=== PATIENT | female | born 1985 | race Caucasian/White ===

== ENCOUNTER 2018-09-14 05:25 | Inpatient (IN) | payer OTHER ==
[~2018-09-14 05:25] MED LIST: Citric Acid/Sodium Citrate Solution 30 ML Cup PO ONE; Lactated Ringers 1,000 ML IV SCH; Metoclopramide 10 MG/2 ML SDV IVPUSH ONE; Oxytocin/Lactated Ringers 10 UNIT/1,000 ML BAG IV SCH; Sodium Chloride 0.9% 10 ML Syringe FLUSH PRN
[2018-09-14] MEDS ORDERED: Citric Acid/Sodium Citrate Solution 30 ML Cup ONE (07:00)
[2018-09-14] MEDS ORDERED: Metoclopramide 10 MG/2 ML SDV ONE (07:00)
[2018-09-14] MEDS ORDERED: ceFAZolin 2 GM in Premix Bag 1 BAG IV ONE (07:00)
[2018-09-14] MEDS ORDERED: Morphine PF 1 MG/ML Amp ONE (07:13)
[2018-09-14] MEDS ORDERED: Ketorolac 30 MG/ML SDV ONE (07:13)
[2018-09-14] MEDS ORDERED: ceFAZolin 1 GM Vial ONE (07:13)
[2018-09-14] MEDS ORDERED: Ondansetron 4 MG/2 ML SDV ONE (07:13)
[2018-09-14] MEDS ORDERED: Oxytocin 10 Units/1 ML SDV ONE (07:13)
[2018-09-14] MEDS ORDERED: Lactated Ringers 2,000 ML ONE (07:13)
--- NOTE | 2018-09-14 07:28 | PCM.PREANE ---
Preanesthetic Assessment - Procedure Proposed Procedure: c section - Anesthesia/Transfusion/Family Hx Anesthesia History: Prior Anesthesia Without Reaction Family History of Anesthesia Reaction: No Transfusion History: No Prior Transfusion(s) - Review of Systems General: No Symptoms Pulmonary: No Symptoms Cardiovascular: No Symptoms Gastrointestinal: No Symptoms Neurological: No Symptoms Other: Reports: None - Physical Assessment NPO Status Date: 09/13/18 NPO Status Time: 18:30 Pulse: 84 O2 Sat by Pulse Oximetry: 100 Respiratory Rate: 16 Blood Pressure: 110/75 Vital Signs: Last Vital Signs Temp 97.9 F 09/14/18 06:06 Pulse 84 09/14/18 05:40 Resp 16 09/14/18 06:06 BP 110/75 09/14/18 05:40 Pulse Ox 100 09/14/18 05:40 Height: 5 ft 3 in Weight: 73.028 kg ASA Class: 2 Mental Status: Alert & Oriented x3 Airway Class: Mallampati = 1 Dentition: Reports: Normal Dentition Thyro-Mental Finger Breadths: 3 Mouth Opening Finger Breadths: 3 ROM/Head Extension: Full Lungs: Clear to Auscultation, Normal Respiratory Effort Cardiovascular: Regular Rate, Regular Rhythm - Lab Values: Laboratory Last Values WBC 5.58 K/mm3 (3.98-10.04) 09/12/18 08:51 RBC 3.88 M/mm3 (3.98-5.22) L 09/12/18 08:51 Hgb 10.7 gm/L (11.2-15.7) L D 09/12/18 08:51 Hct 33.7 % (34.1-44.9) L 09/12/18 08:51 MCV 86.9 fl (79.4-94.8) 09/12/18 08:51 MCH 27.6 pg (25.6-32.2) 09/12/18 08:51 MCHC 31.8 g/dl (32.2-35.5) L 09/12/18 08:51 RDW Std Deviation 43.1 fL (36.4-46.3) 09/12/18 08:51 Plt Count 259 K/mm3 (182-369) 09/12/18 08:51 MPV 9.8 fl (9.4-12.3) 09/12/18 08:51 Neut % (Auto) 65.3 % (34.0-71.1) 09/12/18 08:51 Lymph % (Auto) 27.4 % (19.3-51.7) 09/12/18 08:51 Gordon % (Auto) 5.9 % (4.7-12.5) 09/12/18 08:51 Eos % (Auto) 0.4 (0.7-5.8) L 09/12/18 08:51 Baso % (Auto) 0.5 % (0.1-1.2) 09/12/18 08:51 Neut # (Auto) 3.64 K/mm3 (1.56-6.13) 09/12/18 08:51 Lymph # (Auto) 1.53 K/mm3 (1.18-3.74) 09/12/18 08:51 Gordon # (Auto) 0.33 K/mm3 (0.24-0.36) 09/12/18 08:51 Eos # (Auto) 0.02 K/mm3 (0.04-0.36) L 09/12/18 08:51 Baso # (Auto) 0.03 K/mm3 (0.01-0.08) 09/12/18 08:51 Blood Type O POSITIVE 09/12/18 08:51 Gel Antibody Screen Negative 09/12/18 08:51 - Allergies Allergies/Adverse Reactions: Allergies Allergy/AdvReac Type Severity Reaction Status Date / Time amoxicillin Allergy Rash Verified 10/13/15 07:09 - Blood Blood Available: No - Acknowledgements Anesthesia Type Planned: Spinal Pt an Appropriate Candidate for the Planned Anesthesia: Yes Alternatives and Risks of Anesthesia Discussed w Pt/Guardian: Yes Pt/Guardian Understands and Agrees with Anesthesia Plan: Yes PreAnesthesia Questionnaire Cardiovascular History: Reports: None Respiratory History: Reports: None Gastrointestinal History: Reports: None 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 OB/BYN History: 1 prior - Past Surgical History HEENT Surgical History: Reports: Oral Surgery Female Surgical History: Reports: Section - SUBSTANCE USE Smoking Status *Q: Never Smoker Tobacco Use Within Last Twelve Months: No Second Hand Smoke Exposure: No Days Per Week of Alcohol Use: 0 Recreational Drug Use History: No - HOME MEDS Home Medications: Home Meds Pnv No.122/Iron/Folic Acid [ Multi Tablet] 1 each PO DAILY 10/13/15 [ History] - CURRENT (IN HOUSE) MEDS Current Meds: Current Medications Cefazolin Sodium/Dextrose 2 gm (/ Premix) 50 mls @ 100 mls/hr IV ONETIME ONE Stop: 09/14/18 07:29 Lactated Ringer's (Ringers, Lactated) 1,000 mls @ 125 mls/hr IV ASDIRECTED IDANIA Last Admin: 09/14/18 07:05 Dose: 125 mls/hr Oxytocin/Lactated Ringer's (Pitocin In Lr 10 Units/1,000 Ml) 10 unit in 1,000 mls @ 100 mls/hr IV ASDIRECTED IDANIA; Protocol Sodium Chloride (Saline Flush) 10 ml FLUSH ASDIRECTED PRN PRN Reason: Keep Vein Open Discontinued Medications Bupivacaine HCl (Marcaine 0.5%) Confirm Administered Dose 30 ml .ROUTE .STK-MED ONE Stop: 09/14/18 07:13 Cefazolin Sodium (Ancef) Confirm Administered Dose 2 gm .ROUTE .STK-MED ONE Stop: 09/14/18 07:14 Citric Acid/Sodium Citrate (Bicitra Solution) 30 ml PO ONETIME ONE Stop: 09/14/18 02:51 Last Admin: 09/14/18 07:03 Dose: 30 ml Citric Acid/Sodium Citrate (Bicitra Solution) Confirm Administered Dose 30 ml .ROUTE .STK-MED ONE Stop: 09/14/18 07:01 Lactated Ringer's (Ringers, Lactated) Confirm Administered Dose 2,000 mls @ as directed .ROUTE .STK-MED ONE Stop: 09/14/18 07:14 Ketorolac Tromethamine (Toradol) Confirm Administered Dose 30 mg .ROUTE .STK- MED ONE Stop: 09/14/18 07:14 Metoclopramide HCl (Reglan) 10 mg IVPUSH ONETIME ONE Stop: 09/14/18 02:51 Last Admin: 09/14/18 07:04 Dose: 10 mg Metoclopramide HCl (Reglan) Confirm Administered Dose 10 mg .ROUTE .STK-MED ONE Stop: 09/14/18 07:01 Morphine Sulfate (Duramorph Pf) Confirm Administered Dose 1 mg .ROUTE .STK-MED ONE Stop: 09/14/18 07:14 Ondansetron HCl (Zofran) Confirm Administered Dose 4 mg .ROUTE .STK-MED ONE Stop: 09/14/18 07:14 Oxytocin (Pitocin) Confirm Administered Dose 10 unit .ROUTE .STK-MED ONE Stop: 09/14/18 07:14
[2018-09-14] MEDS ORDERED: ePHEDrine/Normal Saline 25 MG/5 ML Syringe ONE ×2 (07:57→08:09)
[2018-09-14] MEDS: Bupivacaine 0.5% 30 ML SDV ONE ×2 (08:09→08:40)
[2018-09-14] MEDS ORDERED: Ondansetron 4 MG/2 ML SDV IVPUSH PRN ×2 (08:10→12:22)
[2018-09-14] MEDS ORDERED: fentaNYL 100 MCG/2 ML SDV IVPUSH PRN (08:10)
[2018-09-14] MEDS ORDERED: diphenhydrAMINE 50 MG/ML SDV IVPUSH PRN ×2 (08:10→10:49)
--- NOTE | 2018-09-14 08:55 | PCM.POSTAN ---
POST ANESTHESIA ASSESSMENT - MENTAL STATUS Mental Status: Alert, Oriented - VITAL SIGNS Pulse Rate: 61 SaO2: 100 Resp Rate: 26 Blood Pressure: 99/45 Temperature: 97.2 F - RESPIRATORY Respiratory Status: Respiratory Rate WNL, Airway Patent, O2 Saturation Stable, Supplemental Oxygen - CARDIOVASCULAR CV Status: Pulse Rate WNL, Blood Pressure Stable - GASTROINTESTINAL GI Status: No Symptoms - PAIN Pain Score: 0 - POST OP HYDRATION Hydration Status: Adequate & Stable
--- NOTE | 2018-09-14 09:23 | PCM.OPNOTE ---
- General Post-Op/Procedure Note Date of Surgery/Procedure: 09/14/18 Operative Procedure(s): repeat Findings: Viable male, weight 7#11oz, 8/9 apgars at 0814 Pre Op Diagnosis: prior , skin tag mons Post-Op Diagnosis: Same Anesthesia Technique: Spinal Primary Surgeon: Adelita Pitt Cable Cutter And Swager: Arnoldo Rodriguez Fluid Replacement, Intraop: 2,600 Output, Urine Amount: 125 EBL in mLs: 500 Complications: None Condition: Good Free Text/Narrative:: Intake & Output 09/13/18 09/14/18 09/14/18 22:59 06:59 14:59 Output Total 125 Balance -125 The patient was taken to the operating room where epidural anesthesia was dosed to surgical levels without difficulty. The patient was prepped and draped in the usual sterile fashion in the dorsal supine position with a leftward tilt. A Pfannenstiel skin incision was made with the scalpel and carried through to the underlying layer of fascia. The fascia was incised in the midline and extended laterally using Naranjo scissors. Manas clamps were used to elevate the superior aspect of the fascial incision, which was elevated, and the underlying rectus muscles were dissected off bluntly and using Naranjo scissors. Attention was then turned to the inferior aspect of the fascial incision, which in similar fashion was grasped with Manas clamps, elevated, and the underlying rectus muscles were dissected off bluntly and using the naranjo. The rectus muscles were dissected in the midline. The peritoneum was entered bluntly; this incision was extended superiorly and inferiorly with good visualization of the bladder. The bladder blade was inserted. The vesicouterine peritoneum was identified and entered sharply using Metzenbaum scissors. This incision was extended laterally and the bladder flap was created digitally. The bladder blade was reinserted. The lower uterine segment was incised in a transverse fashion using the scalpel and with digital traction. Clear fluid was noted. The was subsequently delivered by flexing the head to the incision. Body and shoulders followed without difficulty. The cord was clamped and cut. The infant was subsequently handed to the awaiting power shear operator whose presence had been requested.. The placenta was delivered spontaneously intact with a three-vessel cord noted. The uterus was exteriorized and cleared of all clots and debris. The uterine incision was repaired in 2 layers using 0 monocryl. Hemostasis was visualized. Hemostasis was visualized bilaterally. The uterus was returned to the abdomen. The uterine incision was reexamined and it was noted to be hemostatic. The pelvis was copiously irrigated. The fascia was closed with 1 PDS suture, and the skin was closed with 3-0 monocryl. Mole on the mons removed in an elliptical fashion. Sutured with 3-0 vicryl. Sponge, lap, and instrument counts were correct x2. The patient was stable at the completion of the procedure and was subsequently transferred to the recovery room in stable condition.
[2018-09-14] MEDS ORDERED: ePHEDrine 50 MG/ML SDV IVPUSH PRN (10:49)
[2018-09-14] MEDS ORDERED: Lanolin 100% Cream 7 GM Tube TOP PRN (10:49)
[2018-09-14] MEDS ORDERED: Dextrose 5%-Lactated Ringers 1,000 ML IV SCH (10:49)
[2018-09-14] MEDS ORDERED: Naloxone 0.4 MG/ML SDV IVPUSH PRN (10:49)
[2018-09-14] MEDS ORDERED: Witch Hazel Medicated Pads 40/Jar TOP PRN (10:49)
[2018-09-15] MEDS: Acetaminophen/HYDROcodone 325-5 MG Tab PO PRN ×3 (00:17→20:34)
[2018-09-15] MEDS: Docusate Sodium 100 MG Cap PO PRN ×2 (08:48→20:35)
--- NOTE | 2018-09-15 10:08 | PCM.PNPP ---
- General Info Date of Service: 09/15/18 Functional Status: Reports: Pain Controlled - Review of Systems General: Reports: No Symptoms HEENT: Reports: No Symptoms Pulmonary: Reports: No Symptoms Cardiovascular: Reports: No Symptoms Gastrointestinal: Reports: No Symptoms Genitourinary: Reports: No Symptoms Musculoskeletal: Reports: No Symptoms Skin: Reports: No Symptoms Neurological: Reports: No Symptoms Psychiatric: Reports: No Symptoms - General Info Date of Service: 09/15/18 - Patient Data Vital Signs - Most Recent: Last Vital Signs Temp 36.6 C 09/15/18 00:09 Pulse 67 09/15/18 04:33 Resp 15 09/15/18 05:00 BP 92/54 L 09/15/18 04:33 Pulse Ox 100 09/15/18 05:00 Weight - Most Recent: 73.028 kg I&O - Last 24 Hours: Intake & Output 09/14/18 09/15/18 09/15/18 22:59 06:59 14:59 Intake Total 1140 1775 Output Total 1430 1600 Balance -290 175 Lab Results - Last 24 Hours: Laboratory Results - last 24 hr 09/12/18 09/15/18 Range/Units 08:57 05:47 WBC 8.59 (3.98-10.04) K/mm3 RBC 3.31 L (3.98-5.22) M/mm3 Hgb 9.1 L D (11.2-15.7) gm/L Hct 29.0 L (34.1-44.9) % MCV 87.6 (79.4-94.8) fl MCH 27.5 (25.6-32.2) pg MCHC 31.4 L (32.2-35.5) g/dl RDW Std Deviation 43.9 (36.4-46.3) fL Plt Count 249 (182-369) K/mm3 MPV 10.4 (9.4-12.3) fl Neut % (Auto) 67.4 (34.0-71.1) % Lymph % (Auto) 24.8 (19.3-51.7) % Orange % (Auto) 7.0 (4.7-12.5) % Eos % (Auto) 0.1 L (0.7-5.8) Baso % (Auto) 0.5 (0.1-1.2) % Neut # (Auto) 5.79 (1.56-6.13) K/mm3 Lymph # (Auto) 2.13 (1.18-3.74) K/mm3 Orange # (Auto) 0.60 H (0.24-0.36) K/mm3 Eos # (Auto) 0.01 L (0.04-0.36) K/mm3 Baso # (Auto) 0.04 (0.01-0.08) K/mm3 RPR Non-reactive (NONREACTIVE) Med Orders - Current: Current Medications Hydrocodone Bitart/Acetaminophen (Sargeant 325-5 Mg) 2 tab PO Q4H PRN PRN Reason: Pain (moderate 4-6) Last Admin: 09/15/18 08:48 Dose: 2 tab Diphenhydramine HCl (Benadryl) 25 mg IVPUSH Q6H PRN PRN Reason: Itching or Nausea Docusate Sodium (Colace) 100 mg PO Q12H PRN PRN Reason: Constipation Last Admin: 09/15/18 08:48 Dose: 100 mg Emollient Ointment (Lansinoh Hpa) 0 gm TOP ASDIRECTED PRN PRN Reason: Sore Nipples Ephedrine Sulfate (Ephedrine Sulfate) 5 mg IVPUSH SEECOMMENT PRN PRN Reason: Other Ibuprofen (Motrin) 600 mg PO Q6H PRN PRN Reason: Pain Naloxone HCl (Narcan) 0.1 mg IVPUSH SEECOMMENT PRN PRN Reason: Respiratory Depression Ondansetron HCl (Zofran) 4 mg IVPUSH Q8H PRN PRN Reason: Nausea Last Admin: 09/14/18 12:47 Dose: 4 mg Witch Ewa (Tucks) 1 pad TOP ASDIRECTED PRN PRN Reason: Pain Discontinued Medications Bupivacaine HCl (Marcaine 0.5%) Confirm Administered Dose 30 ml .ROUTE .STK-MED ONE Stop: 09/14/18 07:13 Last Admin: 09/14/18 08:40 Dose: 4 ml Cefazolin Sodium (Ancef) Confirm Administered Dose 2 gm .ROUTE .STK-MED ONE Stop: 09/14/18 07:14 Citric Acid/Sodium Citrate (Bicitra Solution) 30 ml PO ONETIME ONE Stop: 09/14/18 02:51 Last Admin: 09/14/18 07:03 Dose: 30 ml Citric Acid/Sodium Citrate (Bicitra Solution) Confirm Administered Dose 30 ml .ROUTE .STK-MED ONE Stop: 09/14/18 07:01 Last Admin: 09/14/18 07:31 Dose: Not Given Diphenhydramine HCl (Benadryl) 25 mg IVPUSH Q6H PRN PRN Reason: pruritis Ephedrine Sulfate (Ephedrine In Ns) Confirm Administered Dose 25 mg .ROUTE .STK- MED ONE Stop: 09/14/18 07:58 Ephedrine Sulfate (Ephedrine In Ns) Confirm Administered Dose 25 mg .ROUTE .STK- MED ONE Stop: 09/14/18 08:10 Fentanyl (Sublimaze) 50 mcg IVPUSH Q5M PRN PRN Reason: Pain Cefazolin Sodium/Dextrose 2 gm (/ Premix) 50 mls @ 100 mls/hr IV ONETIME ONE Stop: 09/14/18 07:29 Last Admin: 09/14/18 14:20 Dose: Not Given Lactated Ringer's (Ringers, Lactated) 1,000 mls @ 125 mls/hr IV ASDIRECTED IDANIA Last Admin: 09/14/18 07:05 Dose: 125 mls/hr Oxytocin/Lactated Ringer's (Pitocin In Lr 10 Units/1,000 Ml) 10 unit in 1,000 mls @ 100 mls/hr IV ASDIRECTED IDANIA; Protocol Lactated Ringer's (Ringers, Lactated) Confirm Administered Dose 2,000 mls @ as directed .ROUTE .ST-MED ONE Stop: 09/14/18 07:14 Dextrose/Lactated Ringer's (Dextrose 5%-Lactated Ringers) 1,000 mls @ 125 mls/ hr IV ASDIRECTED IDANIA Stop: 09/14/18 18:48 Last Admin: 09/14/18 16:47 Dose: 125 mls/hr Ketorolac Tromethamine (Toradol) Confirm Administered Dose 30 mg .ROUTE .STK- MED ONE Stop: 09/14/18 07:14 Metoclopramide HCl (Reglan) 10 mg IVPUSH ONETIME ONE Stop: 09/14/18 02:51 Last Admin: 09/14/18 07:04 Dose: 10 mg Metoclopramide HCl (Reglan) Confirm Administered Dose 10 mg .ROUTE .STK-MED ONE Stop: 09/14/18 07:01 Last Admin: 09/14/18 07:31 Dose: Not Given Morphine Sulfate (Duramorph Pf) Confirm Administered Dose 1 mg .ROUTE .STK-MED ONE Stop: 09/14/18 07:14 Ondansetron HCl (Zofran) Confirm Administered Dose 4 mg .ROUTE .STK-MED ONE Stop: 09/14/18 07:14 Ondansetron HCl (Zofran) 4 mg IVPUSH ONETIME PRN PRN Reason: Nausea/Vomiting Oxytocin (Pitocin) Confirm Administered Dose 10 unit .ROUTE .STK-MED ONE Stop: 09/14/18 07:14 Sodium Chloride (Saline Flush) 10 ml FLUSH ASDIRECTED PRN PRN Reason: Keep Vein Open - Interaction Support Person: - Recovery Exam Fundal Tone: Firm Fundal Level: 1 Fingerbreadths Below Umbilicus Fundal Placement: Midline Lochia Amount: Scant Lochia Color: Brownish Perineum Description: Intact, Minimal Bruising/Swelling Episiotomy/Laceration: None Bladder Status: Indwelling Catheter in Place Urinary Elimination: Indwelling Catheter - Exam General: Alert, Oriented HEENT: Pupils Equal Neck: Supple Lungs: Clear to Auscultation, Normal Respiratory Effort Cardiovascular: Regular Rate, Regular Rhythm GI/Abdominal Exam: Normal Bowel Sounds, Soft, Non-Tender, No Organomegaly, No Distention, No Abnormal Bruit, No Mass, Pelvis Stable Extremities: Normal Inspection, Normal Range of Motion, Non-Tender, No Pedal Edema, Normal Capillary Refill Skin: Warm, Dry, Intact Wound/Incisions: Healing Well Neurological: No New Focal Deficit Psy/Mental Status: Alert, Normal Affect, Normal Mood - Problem List Review Problem List Initiated/Reviewed/Updated: Yes - My Orders Last 24 Hours: My Active Orders 09/14/18 10:49 Communication Order [RC] PER UNIT ROUTINE Notify Provider Intake and Out [RC] ASDIRECTED Vital Signs [RC] Q1HR Acetaminophen/HYDROcodone [Sargeant 325-5 MG] 2 tab PO Q4H PRN Docusate Sodium [Colace] 100 mg PO Q12H PRN Lanolin [Lansinoh HPA] See Dose Instructions TOP ASDIRECTED PRN Naloxone [Narcan] 0.1 mg IVPUSH SEECOMMENT PRN Witch Ewa [Tucks] 1 pad TOP ASDIRECTED PRN diphenhydrAMINE [Benadryl] 25 mg IVPUSH Q6H PRN ePHEDrine [ePHEDrine sulfate] 5 mg IVPUSH SEECOMMENT PRN Assess Lochia [WOMSER] Per Unit Routine Assess Uterine Involution [WOMSER] Per Unit Routine Medication Administration Instruction [OM.PC] Routine 09/14/18 12:22 Ondansetron [Zofran] 4 mg IVPUSH Q8H PRN 09/14/18 13:00 Ibuprofen [Motrin] 600 mg PO Q6H PRN - Assessment Assessment:: Term
--- NOTE | 2018-09-15 10:21 | PCM48HPAN ---
Post Anesthesia Note - EVALUATION WITHIN 48HRS OF ANESTHETIC Vital Signs in Normal Range: Yes Patient Participated in Evaluation: Yes Respiratory Function Stable: Yes Airway Patent: Yes Cardiovascular Function Stable: Yes Hydration Status Stable: Yes Pain Control Satisfactory: Yes Nausea and Vomiting Control Satisfactory: Yes (very pleased with care) Pulse Rate: 67 Resp Rate: 15 Temperature: 97.9 F Blood Pressure: 92/54
[2018-09-15] MEDS: Ibuprofen 600 MG Tab PO PRN (14:14)
[2018-09-16] MEDS: Ibuprofen 600 MG Tab PO PRN (02:15)
--- NOTE | 2018-09-16 08:08 | PCM.DCSUM1 ---
Discharge Summary - Hospital Course Diagnosis: Stroke: No - Discharge Data Discharge Date: 09/16/18 Discharge Disposition: Home, Self-Care 01 Condition: Good - Patient Summary/Data Operative Procedure(s) Performed: repeat - Patient Instructions Diet: Usual Diet as Tolerated Activity: No Strenuous Activities Driving: May Drive Today Wound/Incision Care: Keep Operative Site/Wound Site Clean and Dry Notify Provider of: Fever, Increased Pain, Swelling and Redness, Drainage, Nausea and/or Vomiting - Discharge Plan Home Medications: Home Meds Pnv No.122/Iron/Folic Acid [ Multi Tablet] 1 each PO DAILY 10/13/15 [ History] Patient Handouts: Delivery, Care After Referrals: Adelita Pitt MD [Primary Care Provider] - (4 weeks) - Discharge Summary/Plan Comment DC Time >30 min.: No - General Info Date of Service: 09/16/18 Functional Status: Reports: Pain Controlled - Review of Systems General: Reports: No Symptoms HEENT: Reports: No Symptoms Pulmonary: Reports: No Symptoms Cardiovascular: Reports: No Symptoms Gastrointestinal: Reports: No Symptoms Genitourinary: Reports: No Symptoms Musculoskeletal: Reports: No Symptoms Skin: Reports: No Symptoms Neurological: Reports: No Symptoms Psychiatric: Reports: No Symptoms - Patient Data Vitals - Most Recent: Last Vital Signs Temp 36.9 C 09/16/18 02:15 Pulse 62 09/16/18 02:15 Resp 15 09/16/18 02:15 BP 103/57 L 09/16/18 02:15 Pulse Ox 97 09/16/18 02:15 Weight - Most Recent: 73.028 kg I&O - Last 24 hours: Intake & Output 09/15/18 09/16/18 09/16/18 22:59 06:59 14:59 Intake Total 180 Balance 180 Med Orders - Current: Current Medications Hydrocodone Bitart/Acetaminophen ([place] 325-5 Mg) 2 tab PO Q4H PRN PRN Reason: Pain (moderate 4-6) Last Admin: 09/15/18 20:34 Dose: 2 tab Diphenhydramine HCl (Benadryl) 25 mg IVPUSH Q6H PRN PRN Reason: Itching or Nausea Docusate Sodium (Colace) 100 mg PO Q12H PRN PRN Reason: Constipation Last Admin: 09/15/18 20:35 Dose: 100 mg Emollient Ointment (Lansinoh Hpa) 0 gm TOP ASDIRECTED PRN PRN Reason: Sore Nipples Ephedrine Sulfate (Ephedrine Sulfate) 5 mg IVPUSH SEECOMMENT PRN PRN Reason: Other Ibuprofen (Motrin) 600 mg PO Q6H PRN PRN Reason: Pain Last Admin: 09/16/18 02:15 Dose: 600 mg Naloxone HCl (Narcan) 0.1 mg IVPUSH SEECOMMENT PRN PRN Reason: Respiratory Depression Ondansetron HCl (Zofran) 4 mg IVPUSH Q8H PRN PRN Reason: Nausea Last Admin: 09/14/18 12:47 Dose: 4 mg Witch Ewa (Tucks) 1 pad TOP ASDIRECTED PRN PRN Reason: Pain Discontinued Medications Bupivacaine HCl (Marcaine 0.5%) Confirm Administered Dose 30 ml .ROUTE .STK-MED ONE Stop: 09/14/18 07:13 Last Admin: 09/14/18 08:40 Dose: 4 ml Cefazolin Sodium (Ancef) Confirm Administered Dose 2 gm .ROUTE .STK-MED ONE Stop: 09/14/18 07:14 Citric Acid/Sodium Citrate (Bicitra Solution) 30 ml PO ONETIME ONE Stop: 09/14/18 02:51 Last Admin: 09/14/18 07:03 Dose: 30 ml Citric Acid/Sodium Citrate (Bicitra Solution) Confirm Administered Dose 30 ml .ROUTE .STK-MED ONE Stop: 09/14/18 07:01 Last Admin: 09/14/18 07:31 Dose: Not Given Diphenhydramine HCl (Benadryl) 25 mg IVPUSH Q6H PRN PRN Reason: pruritis Ephedrine Sulfate (Ephedrine In Ns) Confirm Administered Dose 25 mg .ROUTE .STK- MED ONE Stop: 09/14/18 07:58 Ephedrine Sulfate (Ephedrine In Ns) Confirm Administered Dose 25 mg .ROUTE .STK- MED ONE Stop: 09/14/18 08:10 Fentanyl (Sublimaze) 50 mcg IVPUSH Q5M PRN PRN Reason: Pain Cefazolin Sodium/Dextrose 2 gm (/ Premix) 50 mls @ 100 mls/hr IV ONETIME ONE Stop: 09/14/18 07:29 Last Admin: 09/14/18 14:20 Dose: Not Given Lactated Ringer's (Ringers, Lactated) 1,000 mls @ 125 mls/hr IV ASDIRECTED IDANIA Last Admin: 09/14/18 07:05 Dose: 125 mls/hr Oxytocin/Lactated Ringer's (Pitocin In Lr 10 Units/1,000 Ml) 10 unit in 1,000 mls @ 100 mls/hr IV ASDIRECTED IDANIA; Protocol Lactated Ringer's (Ringers, Lactated) Confirm Administered Dose 2,000 mls @ as directed .ROUTE .STK-MED ONE Stop: 09/14/18 07:14 Dextrose/Lactated Ringer's (Dextrose 5%-Lactated Ringers) 1,000 mls @ 125 mls/ hr IV ASDIRECTED IDANIA Stop: 09/14/18 18:48 Last Admin: 09/14/18 16:47 Dose: 125 mls/hr Ketorolac Tromethamine (Toradol) Confirm Administered Dose 30 mg .ROUTE .STK- MED ONE Stop: 09/14/18 07:14 Metoclopramide HCl (Reglan) 10 mg IVPUSH ONETIME ONE Stop: 09/14/18 02:51 Last Admin: 09/14/18 07:04 Dose: 10 mg Metoclopramide HCl (Reglan) Confirm Administered Dose 10 mg .ROUTE .STK-MED ONE Stop: 09/14/18 07:01 Last Admin: 09/14/18 07:31 Dose: Not Given Morphine Sulfate (Duramorph Pf) Confirm Administered Dose 1 mg .ROUTE .STK-MED ONE Stop: 09/14/18 07:14 Ondansetron HCl (Zofran) Confirm Administered Dose 4 mg .ROUTE .STK-MED ONE Stop: 09/14/18 07:14 Ondansetron HCl (Zofran) 4 mg IVPUSH ONETIME PRN PRN Reason: Nausea/Vomiting Oxytocin (Pitocin) Confirm Administered Dose 10 unit .ROUTE .STK-MED ONE Stop: 09/14/18 07:14 Sodium Chloride (Saline Flush) 10 ml FLUSH ASDIRECTED PRN PRN Reason: Keep Vein Open - Exam General: Reports: Alert, Oriented HEENT: Reports: Pupils Equal, Pupils Reactive, EOMI, Mucous Membr. Moist/[place] Neck: Reports: Supple Lungs: Reports: Clear to Auscultation, Normal Respiratory Effort Cardiovascular: Reports: Regular Rate, Regular Rhythm GI/Abdominal Exam: Normal Bowel Sounds, Soft, Non-Tender, No Organomegaly, No Distention, No Abnormal Bruit, No Mass, Pelvis Stable (Female) Exam: Normal External Exam, Normal Speculum Exam, Normal Bimanual Exam Rectal (Female) Exam: Normal Exam, Normal Rectal Tone Back Exam: Reports: Normal Inspection, Full Range of Motion Extremities: Normal Inspection, Normal Range of Motion, Non-Tender, No Pedal Edema, Normal Capillary Refill Skin: Reports: Warm, Dry, Intact Wound/Incisions: Reports: Healing Well Neurological: Reports: No New Focal Deficit Psy/Mental Status: Reports: Alert, Normal Affect, Normal Mood
[2018-09-16] MEDS: Docusate Sodium 100 MG Cap PO PRN (09:06)
[2018-09-16] MEDS: Acetaminophen/HYDROcodone 325-5 MG Tab PO PRN (09:06)
[2018-09-16 14:08] VITALS: BP 117/67
== END 2018-09-16 11:53 | disposition home or self-care (01) | DRG 788 ==
LOC: JD.OB 05:25
PROVIDERS: ADMIT Obstetrics & Gynecology; ATTEND Obstetrics & Gynecology
PROC: 10D00Z1 Extraction of Products of Conception, Low, Open Approach (ICD-10-PCS; principal; 2018-09-14)
PROC: 0UBMXZZ Excision of Vulva, External Approach (ICD-10-PCS; 2018-09-14)
DX: O34.211 Maternal care for low transverse scar from previous cesarean delivery (principal); Z3A.37 37 weeks gestation of pregnancy; Z37.0 Single live birth; L91.8 Other hypertrophic disorders of the skin; O26.893 Other specified pregnancy related conditions, third trimester
CPT/HCPCS: 01961; 36415; 59025; 85025; 86592; 86850; 86900; 86901; 94762; A9270-GY; J0690; J1885; J2274; J2405; J2590; J2765; J3490; J7042; J7050; J7120